=== PATIENT | male | born 1935 | race Two or more races ===

== ENCOUNTER 2021-08-16 08:08 | Observation (INO) | payer OTHER, MEDICAID ==
[~2021-08-16] VITALS: Ht 172.7 cm; Wt 76.3 kg
[~2021-08-16 08:08] MED LIST: AMLO-489 PO; ASCO500T11 PO; ASPI-543 PO; ATOR20TA50 PO; CYCL0.05 OP; LATA0.0019 OP; LEVO750T64 PO; LISI20TA28 PO; MELA3TAB27 PO; MULTTAB99 PO; OMEP20TA PO; PANT1INJ3 PO; TAMS1CAP25 PO
[2021-08-16] MEDS ORDERED: ceFAZolin 1GM/50ML 50 ML IV ONE (08:50)
[2021-08-16] MEDS ORDERED: ROCURONIUM 10MG/ML 10ML VIAL IV ONE (08:53)
[2021-08-16] MEDS ORDERED: fentaNYL CITRATE 5 ML ONE (08:53)
[2021-08-16] MEDS ORDERED: MIDAZOLAM HCL 2MG/2ML 2ml VIAL (1mg/ml) ONE (08:53)
[2021-08-16] MEDS ORDERED: PROPOFOL 10 MG/ML 20 ML IV ONE ×2 (09:05→10:45)
[2021-08-16] MEDS ORDERED: ONDANSETRON HCL 4 MG/2 ML VIAL ONE (09:05)
[2021-08-16] MEDS ORDERED: LIDOCAINE 2% (LOCAL ANESTH.) PF 5ml SDV ONE (09:05)
[2021-08-16] MEDS ORDERED: ONDANSETRON HCL 4 MG/2 ML VIAL IV PRN ×2 (10:00→13:45)
[2021-08-16] MEDS ORDERED: HYDROmorphone HCL 2 MG/ML VL IV PRN (10:00)
[2021-08-16] MEDS ORDERED: GLYCOPYRROLATE 0.2 MG/ML 1ML VIAL ONE (10:46)
[2021-08-16] MEDS ORDERED: NEOSTIGMINE 1 MG/ML INJ (10mg/10ML VIAL) ONE (10:46)
[2021-08-16] MEDS ORDERED: MORPHINE SULFATE INJECTION 2 MG/ML SYRG IV PRN (11:00)
[2021-08-16] MEDS ORDERED: NITROGLYCERIN 0.4 MG SL TAB SL PRN (11:00)
[2021-08-16] MEDS ORDERED: HYDROcodone-ACET 10/325MG TAB PO PRN (13:45)
[2021-08-16 17:00] VITALS: BP 145/77
[2021-08-16 22:00] VITALS: BP 139/77
[2021-08-17 05:00] VITALS: BP 147/80
[2021-08-17] MEDS: HYDROmorphone HCL 2 MG/ML VL IV PRN ×2 (06:20→15:54)
[2021-08-17 08:00] VITALS: BP 123/62
[2021-08-17 12:00] VITALS: BP 139/75
[2021-08-17 15:06] VITALS: BP 139/75
[2021-08-17 16:24] VITALS: BP 139/75
== END 2021-08-17 17:10 | disposition home or self-care (01) ==
LOC: SUR 08:08 → INTOOBSV 12:51 → TELE-WESTW 12:51
PROVIDERS: ADMIT Urology; ATTEND Internal Medicine
DX: N40.0 Benign prostatic hyperplasia without lower urinary tract symptoms (principal); Z20.822 Contact with and (suspected) exposure to COVID-19
CPT/HCPCS: 52601; 87081; 88305; 88342; 96374; 96376; G0378; J0690; J1170; J2001; J2250; J2405; J2704; J3010; U0003